=== PATIENT | male | born 1960 | race Caucasian/White ===

== ENCOUNTER → 2019-04-29 | Outpatient (CLI) | payer BC ==
--- NOTE | 2019-04-30 13:53 | MRI ---
EXAM DESCRIPTION: Lumbar Spine w/o Contrast : Magnetic Resonance Imaging. CLINICAL HISTORY: SPONDYLOSIS COMPARISON: Lumbar radiographs 08 April 2019. TECHNIQUE: Multiplanar, multiple standard sequences, non contrast MRI, lumbar spine. FINDINGS: L5-S1: The disc is well visualized on axial T2 series 501, image 3. Minimal desiccation of the disc. Minimal disc space loss. Bilateral degenerative hypertrophy of the facet joints and ligaments. Bilateral shortened pedicles. AP canal diameter 9 mm. Mild narrowing of the right foramen and moderate narrowing of the left foramen. L4-L5: Moderate disc space loss with midline anterior and right side endplate reactive changes and disc osteophyte bulging. Moderate to severe right foraminal narrowing. Mild to moderate left foraminal narrowing. Tiny posterior disc bulge. Mild bilateral degenerative hypertrophy of the facet joints and ligaments, right more than left. Bilateral pedicle shortening. AP canal diameter 10 mm. Near stenosis of the right subarticular recess abutting the descending right L5 nerve. L3-L4: Moderate disc space loss. Midline and posterior moderate reactive endplate reaction with Schmorl's nodes in the superior and inferior endplate. Posterior broad-based disc osteophyte bulge. Bilateral degenerative hypertrophic facet joints and ligaments. Bilateral pedicle shortening. AP canal diameter 8.5 mm. Bilateral mild to moderate foraminal narrowing. Right subarticular recess stenosis and impingement descending right L4 nerve. L2-L3: Moderate disc space loss with Schmorl's nodes superior and inferior moderate endplate reactive changes in the midline and to the right of midline. Anterior bulging and endplate ridging. Posterior moderate endplate reactive change and disc osteophyte complex broad-based bulge impressing on the thecal sac. Bilateral degenerative hypertrophy of the facet joints and ligaments. Pedicle shortening bilaterally. AP canal diameter 6 mm with compression of the extradural space. Mild narrowing of the bilateral foramina. Bilateral narrowing subarticular recesses. L1-L2: Moderate disc space loss mostly to the left of midline with multiple endplate concavities superior and Schmorl's node inferior. Trace retrolisthesis. Posterior tiny bulge. Anterior endplate reactive changes bulging disc and endplate ridging. Minimal degenerative hypertrophic changes facet joints and ligaments. Bilateral shortened pedicles. AP canal diameter 9 mm. Mild bilateral foraminal narrowing right more than left. Bilateral effacement of the subarticular recesses, abutting the bilateral L2 nerves. T12-L1: Minimal disc desiccation with disc space preserved. Posterior left paracentral disc protrusion 5 mm abutting the thecal sac just inferior to the conus. Bilaterally shortened pedicles. Bilateral degenerative hypertrophic facet joints and ligaments. Bilateral foramina are patent. Moderate left paracentral canal narrowing. Dextroscoliosis L1-L4 Paravertebral soft tissues paraspinal muscle atrophy cyst versus hydronephrosis inferior right kidney.. Distal cord normal signal and caliber. Otherwise normal marrow signal in the remaining vertebral bodies and the posterior elements. Vertebral bodies are not compressed at any level. IMPRESSION: 1. Multiple levels of disc space loss and spondylosis, desiccated discs, multiple levels of degenerative hypertrophic facet joints and ligaments, and multiple levels with bilateral pedicle shortening. 2. Multifactorial mild central canal stenosis L5-S1. Moderate narrowing of foramina. 3. Multifactorial borderline mild central canal stenosis L4-L5 and moderate to severe right foraminal narrowing. Mild to moderate foraminal narrowing. Near stenosis right subarticular recess abutting the descending right L5 nerve. 4. Mild to moderate multifactorial central canal stenosis at L3-L4. Moderate foraminal narrowing. Right subarticular recess stenosis with compromise of the descending right L4 nerve. 5. Multifactorial moderate central canal stenosis at L2-L3 with compression of the extradural space. No significant foraminal narrowing. 6. Multifactorial mild central canal stenosis L1-L2. Bilateral effacement of the subarticular recesses, abutting the bilateral L3 nerves. Electronically signed by: Floyd Zimmerman MD 04/30/2019 1:52 PM [facility]
== END ==
LOC: MRI 14:00
PROVIDERS: ATTEND Family Medicine
DX: M47.16 Other spondylosis with myelopathy, lumbar region (principal); M51.06 Intervertebral disc disorders with myelopathy, lumbar region; M48.07 Spinal stenosis, lumbosacral region